=== PATIENT | female | born 1960 ===

== ENCOUNTER 2022-08-17 06:00 | Outpatient (RCR) | payer OTHER, SELFPAY | END 2022-09-01 23:59 | disposition home or self-care (01) | LOC: SPT 06:00 | PROVIDERS: Visit Provider Family Medicine | DX: M25.511 Pain in right shoulder (principal) | CPT/HCPCS: 97110; 97140; 97161; 97530 ==

== ENCOUNTER 2022-09-02 06:00 | Outpatient (RCR) | payer OTHER, SELFPAY | END 2022-10-02 23:59 | disposition home or self-care (01) | LOC: SPT 06:00 | PROVIDERS: Visit Provider Family Medicine | DX: M25.511 Pain in right shoulder (principal) | CPT/HCPCS: 97110; 97140 ==

== ENCOUNTER 2022-10-03 06:00 | Outpatient (RCR) | payer OTHER, SELFPAY | END 2022-11-02 23:59 | disposition home or self-care (01) | LOC: SPT 06:00 | PROVIDERS: Visit Provider Family Medicine | DX: M25.511 Pain in right shoulder (principal) | CPT/HCPCS: 97140; 97530 ==

== ENCOUNTER 2022-11-03 06:00 | Outpatient (RCR) | payer OTHER, SELFPAY | END 2022-12-02 23:59 | disposition home or self-care (01) | LOC: SPT 06:00 | PROVIDERS: Visit Provider Family Medicine | DX: M25.511 Pain in right shoulder (principal) | CPT/HCPCS: 97140; 97530 ==

== ENCOUNTER 2023-12-10 10:20 | Outpatient (RCR) | payer MEDICARE, SELFPAY | END 2024-01-02 23:59 | disposition home or self-care (01) | LOC: SPT 10:20 | PROVIDERS: Visit Provider Nurse Practitioner Family | DX: R10.9 Unspecified abdominal pain (principal) | CPT/HCPCS: 97140; 97161; 97530 ==